=== PATIENT | male | born 1985 | race Asian ===

== ENCOUNTER 2020-03-12 02:11 | Emergency (ER) | payer SELFPAY ==
[~2020-03-12] VITALS: Ht 170.2 cm; Wt 68.0 kg
--- NOTE | 2020-03-12 02:10 | NUR ---
ED Nurse Note: pt presents to ED via EMS arrival c/o SOB and pain at 0130 this AM. when asked if hes in pain pt says yes but only shakes his R arm erratically, not being able to specify where/what is in pain. pt is writhing around in bed, very restless, tachypneic but satting at 100% on RA. pt denies any drug or alcohol use tonight. claims he does not understand [place]ib[place]ian but responds to questions asked in [place]ib[place]ian with [place]ian answers.
--- NOTE | 2020-03-12 02:20 | NUR ---
ED Nurse Note: Pt requested [facility] certified court interpreter. 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 he got off work at 2200 and went home to sleep, woke up around 0100 with sudden onset of difficulty breathing. pt denies any cough or fever, denies any sick contacts. pt requesting to be put on O2, Satting at 99% on RA.
[2020-03-12] MEDS ORDERED: Ketorolac 30mg Inj IV ONE (02:30)
[2020-03-12] MEDS ORDERED: LORazepam Inj 2mg/ml 1ml IV ONE (02:30)
[2020-03-12 02:36] LABS: EOSINOPHILS % (AUTO) 4.6 % (0.0-3.0); HEMATOCRIT 45.4 % (42.0-52.0); HEMOGLOBIN 14.7 G/DL (14.2-18.0); LYMPHOCYTES % (AUTO) 37.6 % (20.0-45.0); MEAN CORPUSCULAR VOLUME 92 FL (80-99); MONOCYTES % (AUTO) 5.2 % (1.0-10.0); NEUTROPHILS % (AUTO) 50.6 % (45.0-75.0); PLATELET COUNT 245 K/UL (150-450); RED BLOOD COUNT 4.96 M/UL (4.70-6.10); RED CELL DISTRIBUTION WIDTH 12.6 % (11.6-14.8); WHITE BLOOD COUNT 8.9 K/UL (4.8-10.8)
[2020-03-12 02:46] LABS: ANION GAP 15 mmol/L (5-15); BLOOD UREA NITROGEN 12 mg/dL (7-18); CARBON DIOXIDE 22 MMOL/L (21-32); CHLORIDE 101 MMOL/L (98-107); CREATININE 1.6 MG/DL (0.55-1.30); POTASSIUM 3.6 MMOL/L (3.5-5.1); SODIUM 137 MMOL/L (136-145)
[2020-03-12 02:53] VITALS: BP_SYST 131; BP_SYST 148; BP_DIAS 100; BP_DIAS 81
[2020-03-12 02:56] LABS: ALANINE AMINOTRANSFERASE 40 U/L (12-78); ALBUMIN 4.1 G/DL (3.4-5.0); ALBUMIN/GLOBULIN RATIO 1.2 (1.0-2.7); ALKALINE PHOSPHATASE 107 U/L (46-116); ASPARTATE AMINO TRANSFERASE 27 U/L (15-37); CREATINE KINASE 199 U/L (26-308)
--- NOTE | 2020-03-12 03:12 | Emergency Room Report ---
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 He finished work around 10 he reports that he had gone home After awaking several hours later and walking to eat something patient reports that the symptoms initiated Denies any headache denies any fevers Denies any cough denies any neck pain or photophobia denies any recent travel denies any chest pain Allergies: Coded Allergies: UNABLE TO ASSESS (Unverified , 03/12/20) COVID-19 Screening Contact w/high risk pt: No Recent Travel to affected area: No Experienced COVID-19 symptoms?: No COVID-19 Testing performed 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 Patient History Past Medical History: see triage record Reviewed Nursing Documentation: PMH: Agreed; PSxH: Agreed Nursing Documentation-PMH Past Medical History: No Stated History Review of Systems All Other Systems: negative except mentioned in HPI Physical Exam Vital Signs Date Time Temp Pulse Resp B/P (MAP) Pulse Ox O2 Delivery O2 Flow Rate FiO2 03/12/20 02:04 98.2 120 18 148/100 (116) 95 Room Air Sp02 EP Interpretation: reviewed, normal General Appearance: mild distress - Appears uncomfortable agitated Head: normocephalic, atraumatic Eyes: bilateral eye PERRL, bilateral eye EOMI ENT: hearing grossly normal, EOM grossly intact Neck: supple Respiratory: lungs clear, no respiratory distress, no retraction Cardiovascular #1: regular rate, rhythm Gastrointestinal: non tender, soft Genitourinary: no CVA tenderness Musculoskeletal: normal inspection Neurologic: alert, clinic administrator III-XII nml as tested, oriented x3 Psychiatric: anxious Skin: no rash Lymphatic: normal inspection Medical Decision Making Diagnostic Impression: Primary Impression: Pneumonia ER Course Patient is a fairly complex patient with multiple differential to consideration including but not limited to cardiac cardiopulmonary and vascular emergencies Other differential such as covid-19, infectious process entertained Patient's initial x-ray imaging does not show any acute process baseline blood work show mildly elevated creatinine level Glucose is also borderline Patient further hydrated he does seem to be much more comfortable after benzodiazepine Patient's EKG shows some nonspecific findings And given the initial complaints CT imaging of the chest is obtained The CT does report small alveolar marking with possible pneumonia no obvious pulmonary embolism Patient continues to saturate well on room air he is provided with oral Levaquin here And requires close outpatient follow-up The rapid covid-19 test was negative however there can be false negatives patient requires appropriate follow-up Labs Test 03/12/20 02:19 White Blood Count 8.9 K/UL (4.8-10.8) Red Blood Count 4.96 M/UL (4.70-6.10) Hemoglobin 14.7 G/DL (14.2-18.0) Hematocrit 45.4 % (42.0-52.0) Mean Corpuscular Volume 92 FL (80-99) Mean Corpuscular Hemoglobin 29.6 PG (27.0-31.0) Mean Corpuscular Hemoglobin Concent 32.3 G/DL (32.0-36.0) Red Cell Distribution Width 12.6 % (11.6-14.8) Platelet Count 245 K/UL (150-450) Mean Platelet Volume 6.8 FL (6.5-10.1) Neutrophils (%) (Auto) 50.6 % (45.0-75.0) Lymphocytes (%) (Auto) 37.6 % (20.0-45.0) Monocytes (%) (Auto) 5.2 % (1.0-10.0) Eosinophils (%) (Auto) 4.6 % (0.0-3.0) Basophils (%) (Auto) 2.0 % (0.0-2.0) Sodium Level 137 MMOL/L (136-145) Potassium Level 3.6 MMOL/L (3.5-5.1) Chloride Level 101 MMOL/L (98-107) Carbon Dioxide Level 22 MMOL/L (21-32) Anion Gap 15 mmol/L (5-15) Blood Urea Nitrogen 12 mg/dL (7-18) Creatinine 1.6 MG/DL (0.55-1.30) Estimat Glomerular Filtration Rate 50.3 mL/min (>60) Glucose Level 193 MG/DL (74-106) Calcium Level 9.0 MG/DL (8.5-10.1) Total Bilirubin 1.0 MG/DL (0.2-1.0) Aspartate Amino Transf (AST/SGOT) 27 U/L (15-37) Alanine Aminotransferase (ALT/SGPT) 40 U/L (12-78) Alkaline Phosphatase 107 U/L (46-116) Total Creatine Kinase 199 U/L (26-308) Troponin I 0.000 ng/mL (0.000-0.056) Total Protein 7.6 G/DL (6.4-8.2) Albumin 4.1 G/DL (3.4-5.0) Globulin 3.5 g/dL Albumin/Globulin Ratio 1.2 (1.0-2.7) Salicylates Level 0.4 ug/mL (2.8-20) Urine Opiates Screen Negative (NEGATIVE) Acetaminophen Level < 2 MCG/ML (10-30) Urine Barbiturates Screen Negative (NEGATIVE) Phencyclidine (PCP) Screen Negative (NEGATIVE) Urine Amphetamines Screen Negative (NEGATIVE) Urine Benzodiazepines Screen Negative (NEGATIVE) Urine Cocaine Screen Negative (NEGATIVE) Urine Marijuana (THC) Screen Negative (NEGATIVE) Serum Alcohol < 3 mg/dL EKG Diagnostic Results Rate: normal Rhythm: NSR ST Segments: other - Nonspecific ST and T wave changes there is also consideration of a mildly prolonged QRS Rhythm Strip Diag. Results EP Interpretation: yes Rate: 79 Rhythm: NSR, no PVC's, no ectopy Chest X-Ray Diagnostic Results Chest X-Ray Diagnostic Results : Chest X-Ray Ordered: Yes # of Views/Limited/Complete: 1 View Indication: Shortness of Breath EP Interpretation: Yes Interpretation: no consolidation, no effusion, no pneumothorax Impression: No acute disease Electronically Signed by: Erick Christianson, CT/MRI/US Diagnostic Results CT/MRI/US Diagnostic Results : Impression CT chestIMPRESSION: There is a faint alveolar infiltrate in the right upper lobe suspicious for pneumonia. No pulmonary embolus identified. Last Vital Signs Date Time Temp Pulse Resp B/P (MAP) Pulse Ox O2 Delivery O2 Flow Rate FiO2 03/12/20 02:53 103 18 Room Air 03/12/20 02:53 98.2 131/81 95 Status: improved Disposition: HOME, SELF-CARE Condition: Improved Referrals: NOT CHOSEN IPA/MD,REFERRING (PCP) Additional Instructions: Patient is provided with the discharge instructions notified to follow up with primary doctor in the next 2-3 days otherwise return to the er with any worsening symptoms. Please note that this report is being documented using DRAGON technology. This can lead to erroneous entry secondary to incorrect interpretation by the dictating instrument. Erick Christianson DO Mar 12, 2020 03:12
[2020-03-12] MEDS ORDERED: Omnipaque 350 100ml vial INJ PRN (03:15)
--- NOTE | 2020-03-12 04:33 | NUR ---
ED Nurse Note: pt is being taken to CT via gurney, no acute distress is noted at this time. pt has finished 2L NS per ERMD orders, he appears to be more calm now and cooperative. VSS on court recording monitor
--- NOTE | 2020-03-12 04:57 | NUR ---
ED Nurse Note: pt returned from CT
--- NOTE | 2020-03-12 05:31 | Diagnostic Imaging Report ---
EXAM: CT Angiography Chest With Intravenous Contrast CLINICAL HISTORY: SOB TECHNIQUE: Axial computed tomographic angiography images of the chest with intravenous contrast. CTDI is 30 mGy and DLP is 144 mGy-cm. One or more of the following dose reduction techniques were used: automated exposure control, adjustment of the mA and/or kV according to patient size, use of iterative reconstruction technique. MIP reconstructed images were created and reviewed. COMPARISON: No relevant prior studies available. FINDINGS: Pulmonary arteries: Unremarkable. No pulmonary embolism. Aorta: No acute findings. No thoracic aortic aneurysm. Lungs: There is a faint alveolar infiltrate in the right upper lobe suspicious for pneumonia. No additional infiltrates are identified. No mass. Pleural space: Unremarkable. No significant effusion. No pneumothorax. Heart: Unremarkable. No cardiomegaly. No significant pericardial effusion. No evidence of RV dysfunction. Bones/joints: No acute fracture. No dislocation. Soft tissues: Unremarkable. Lymph nodes: Unremarkable. No enlarged lymph nodes. IMPRESSION: There is a faint alveolar infiltrate in the right upper lobe suspicious for pneumonia. No pulmonary embolus identified.
[2020-03-12] MEDS ORDERED: Levofloxacin 750mg tab ORAL ONE (05:45)
[2020-03-12] MEDS ORDERED: LEVAQUIN750 MG ORAL (05:47)
--- NOTE | 2020-03-12 05:52 | NUR ---
ER DISCHARGE NOTE: Patient is cleared to be discharged per ERMD, pt is aox4, on room air, with stable vital signs. pt was given dc and prescription instructions, pt was able to verbalize understanding, pt id band and iv site removed without complications. pt is able to ambulate with steady gait. pt took all belongings.
[2020-03-12 05:53] VITALS: BP 131/81
--- NOTE | 2020-03-12 13:02 | Diagnostic Imaging Report ---
Indication: Shortness of breath Technique: XRAY Chest 1v Comparison: None Findings: Subtle patchy opacities are suggested in the right upper lobe. Possibility of a subtle evolving pneumonia not excluded. No pleural effusion or pneumothorax. Heart size and mediastinal contours within normal limits. No acute osseous abnormality. IMPRESSION: Possible subtle patchy opacities in the right upper lung. Developing pneumonia not excluded. Clinical correlation and follow-up recommended.
== END 2020-03-12 05:55 | disposition home or self-care (01) ==
LOC: EDBD 02:11 → EMR 03:00
DX: J18.9 Pneumonia, unspecified organism (principal)
CPT/HCPCS: 36415; 71045; 71275; 80053; 80307; 82550; 84484; 85025; 93005; 96361; 96374; 96375; 99284; G0480; J1885; J7030; Q9967; U0002

== ENCOUNTER 2020-03-15 00:13 | Emergency (ER) | payer SELFPAY ==
[~2020-03-15] VITALS: Ht 165.1 cm; Wt 74.8 kg
[~2020-03-15 00:13] MED LIST: LEVAQUIN750 MG ORAL
[2020-03-15 00:34] VITALS: BP 133/61
--- NOTE | 2020-03-15 00:34 | NUR ---
ED Nurse Note: pt ambulated into ed from home stating that he believes he has COVID-19. Pt denies any flu like symptoms, fever, n/v/d, SOB. Pt stated that he was recently tested at [facility] for COVID 19 and the results were negative. Pt states that he was given discharge paperwork which diagnoses the pt with pnemonia and was given RX. Pt was educated on pneumonia disease process vs COVID-19 and similarities. Pt appears to be uninformed regarding pneumonia diagnosis. Pt VSS, no evidence of fever, no body aches/chills. Awaiting ERMD at bedside.
--- NOTE | 2020-03-15 00:45 | NUR ---
ED Nurse Note: ERMD at bedside
--- NOTE | 2020-03-15 00:48 | NUR ---
ED Nurse Note: COVID swab sent to lab
--- NOTE | 2020-03-15 00:55 | NUR ---
ED Nurse Note: xray at bedside
[2020-03-15] MEDS ORDERED: ZINC GLUCONATE100 MG ORAL (01:02)
[2020-03-15] MEDS ORDERED: VITAMIN C500 M1 ORAL (01:02)
--- NOTE | 2020-03-15 01:02 | Emergency Room Report ---
History of Present Illness General Chief Complaint: General Complaint Source: Patient Present Illness HPI This a 34-year-old male with no past medical history. He presents with chief plaint of follow-up on pneumonia. He was here few days ago. He had fever and cough. He was short of breath. Rapid cover testing was negative. Chest x-ray was unremarkable. A CT scan however showed possible early infiltrate. He was placed on Levaquin. He said he felt little bit better. Fever improved. Still feels short of breath. He was sent in to be reevaluated for to see if he can go to work. Patient denies any nausea vomiting. Denies any chest pain. Cough is nonproductive in nature. Allergies: Coded Allergies: No Known Allergies (Unverified , 03/15/20) COVID-19 Screening Contact w/high risk pt: No Recent Travel to affected area: No Experienced COVID-19 symptoms?: No COVID-19 Testing performed HAND MOLDER MEAT: Yes - here , rapid, neg COVID-19 Screening: Negative COVID-19 COVID-19 Testing Source: nasl Patient History Past Medical History: see triage record, old chart reviewed Past Surgical History: none Pertinent Family History: none Social History: Denies: smoking Immunizations: other Reviewed Nursing Documentation: PMH: Agreed; PSxH: Agreed Nursing Documentation-PMH Past Medical History: No Stated History Review of Systems Eye: Denies: eye pain, blurred vision ENT: Denies: ear pain, nose congestion, throat swelling Respiratory: Reports: cough, shortness of breath Cardiovascular: Denies: chest pain, palpitations Gastrointestinal: Denies: abdominal pain, diarrhea, nausea, vomiting Musculoskeletal: Denies: back pain, joint pain Skin: Denies: rash Neurological: Denies: headache, numbness Endocrine: Denies: increased thirst, increased urine Hematologic/Lymphatic: Denies: easy bruising All Other Systems: negative except mentioned in HPI Physical Exam Vital Signs Date Time Temp Pulse Resp B/P (MAP) Pulse Ox O2 Delivery O2 Flow Rate FiO2 03/15/20 00:24 98.6 83 18 133/61 (85) 97 Room Air Vitals normal Sp02 EP Interpretation: reviewed, normal General Appearance: well appearing, no apparent distress, alert Head: normocephalic, atraumatic Eyes: bilateral eye PERRL, bilateral eye EOMI ENT: hearing grossly normal, normal pharynx Neck: full range of motion, supple, no meningismus Respiratory: chest non-tender, lungs clear, normal breath sounds Cardiovascular #1: regular rate, rhythm, no murmur Gastrointestinal: normal bowel sounds, non tender, no mass, no organomegaly, no bruit, non-distended Musculoskeletal: back normal, normal range of motion, gait/station normal Psychiatric: mood/affect normal Medical Decision Making Diagnostic Impression: Primary Impression: URI (upper respiratory infection) Qualified Codes: J06.9 - Acute upper respiratory infection, unspecified Additional Impression: CAP (community acquired pneumonia) Qualified Codes: J18.9 - Pneumonia, unspecified organism ER Course This patient presents with shortness of breath and cough. His initial rapid COVID was negative. I sent another one. Chest x-ray unremarkable. Because of the pandemic, suspect that he may have COVID. We will continue with his antibiotics since he is doing better. He looks well. No evidence of any sepsis , ACS, PE to name a few. No respiratory distress. Will discharge home. Chest X-Ray Diagnostic Results Chest X-Ray Diagnostic Results : Chest X-Ray Ordered: Yes # of Views/Limited/Complete: 1 View Indication: Shortness of Breath EP Interpretation: Yes Interpretation: no consolidation, no effusion, no pneumothorax, no acute cardiopulmonary disease Impression: No acute disease Electronically Signed by: Venu Deleon MD Last Vital Signs Date Time Temp Pulse Resp B/P (MAP) Pulse Ox O2 Delivery O2 Flow Rate FiO2 03/15/20 00:34 83 18 Room Air 03/15/20 00:34 98.6 133/61 97 Status: improved Disposition: HOME, SELF-CARE Condition: Stable Scripts Ascorbic Acid* (VITAMIN C*) 500 Mg Tablet 500 MG ORAL TWICE A DAY, #30 TAB Prov: Venu Deleon MD 03/15/20 Zinc Gluconate (ZINC GLUCONATE) 100 Mg Tablet 100 MG ORAL DAILY, #30 TAB Prov: Venu Deleon MD 03/15/20 Additional Instructions: Assume that you have COVID. Another test was sent. We will call you with the results. You can go back to work if you do not have fever for 3 days. Follow- up with your doctor in a week. Practice isolation. Return if worse. Venu Deleon MD Mar 15, 2020 01:02
[2020-03-15 01:07] VITALS: BP 133/61
--- NOTE | 2020-03-15 01:07 | NUR ---
ER DISCHARGE NOTE: Patient is cleared to be discharged home per ERMD, pt is aox4, 99% on room air, with stable vital signs. pt was given dc and prescription instructions, pt was able to verbalize understanding, pt id band removed. pt is able to ambulate with steady gait. pt took all belongings.
--- NOTE | 2020-03-15 01:30 | Diagnostic Imaging Report ---
INDICATION: No evidence of breath COMPARISON: CT chest 03/12/2020 FINDINGS: Single frontal view demonstrates a normal cardiomediastinal silhouette. The lungs are clear. No pleural effusions. The visualized osseous structures are within normal limits. IMPRESSION: No acute cardiopulmonary disease. Specifically no right upper lung opacity is seen radiographically.
== END 2020-03-15 01:07 | disposition home or self-care (01) ==
LOC: EMR 00:53
DX: J06.9 Acute upper respiratory infection, unspecified (principal); J18.9 Pneumonia, unspecified organism
CPT/HCPCS: 71045; 99283

== ENCOUNTER 2020-04-26 23:02 | Emergency (ER) | payer SELFPAY ==
[~2020-04-26] VITALS: Ht 172.7 cm; Wt 68.0 kg
[~2020-04-26 23:02] MED LIST changes: +VITAMIN C500 M1 ORAL; +ZINC GLUCONATE100 MG ORAL
[2020-04-26 23:20] VITALS: BP 134/93
[2020-04-27 00:19] LABS: ANION GAP 6 mmol/L (5-15); BLOOD UREA NITROGEN 12 mg/dL (7-18); CALCIUM 9.8 MG/DL (8.5-10.1); CARBON DIOXIDE 30 MMOL/L (21-32); CHLORIDE 102 MMOL/L (98-107); CREATININE 1.2 MG/DL (0.55-1.30); POTASSIUM 3.8 MMOL/L (3.5-5.1); SODIUM 138 MMOL/L (136-145)
[2020-04-27 00:21] LABS: BASOPHILS % (AUTO) 2.3 % (0.0-2.0); EOSINOPHILS % (AUTO) 10.5 % (0.0-3.0); HEMATOCRIT 44.7 % (42.0-52.0); HEMOGLOBIN 15.2 G/DL (14.2-18.0); LYMPHOCYTES % (AUTO) 27.3 % (20.0-45.0); MEAN CORPUSCULAR VOLUME 88 FL (80-99); MONOCYTES % (AUTO) 9.8 % (1.0-10.0); NEUTROPHILS % (AUTO) 50.1 % (45.0-75.0); PLATELET COUNT 222 K/UL (150-450); RED BLOOD COUNT 5.11 M/UL (4.70-6.10); RED CELL DISTRIBUTION WIDTH 11.2 % (11.6-14.8)
[2020-04-27 00:30] LABS: ALANINE AMINOTRANSFERASE 31 U/L (12-78); ALBUMIN 4.6 G/DL (3.4-5.0); ALBUMIN/GLOBULIN RATIO 1.5 (1.0-2.7); ALKALINE PHOSPHATASE 106 U/L (46-116); ASPARTATE AMINO TRANSFERASE 18 U/L (15-37)
[2020-04-27] MEDS ORDERED: CLARITIN10 MG ORAL (00:35)
[2020-04-27 00:44] VITALS: BP 130/86
--- NOTE | 2020-04-28 07:21 | Emergency Room Report ---
History of Present Illness General Chief Complaint: Generalized Weakness Source: Patient Present Illness HPI Patient is a 34-year-old male presents requesting blood draw. Patient stated he wanted his hemoglobin checked. Reports no new symptoms currently. Reportedly had been feeling somewhat weak. He denies prior history of anemia. He denies any fever or vomiting. Denies any pain. He had been ambulatory without assistance. Patient denies any other current issues. 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 Patient History Past Medical History: see triage record Reviewed Nursing Documentation: PMH: Agreed; PSxH: Agreed Nursing Documentation-PMH Past Medical History: No Stated History Review of Systems All Other Systems: negative except mentioned in HPI Physical Exam Vital Signs Date Time Temp Pulse Resp B/P (MAP) Pulse Ox O2 Delivery O2 Flow Rate FiO2 04/26/20 23:09 98.8 74 12 134/93 (107) 100 Room Air Sp02 EP Interpretation: reviewed, normal General Appearance: normal inspection, well appearing, no apparent distress, alert, GCS 15 Head: atraumatic ENT: normal ENT inspection, hearing grossly normal, normal voice Neck: normal inspection, full range of motion, supple, no bony tend Respiratory: normal inspection, lungs clear, normal breath sounds, no respiratory distress, no retraction, no wheezing Cardiovascular #1: regular rate, rhythm, no edema Gastrointestinal: normal inspection, normal bowel sounds, non tender, soft, no guarding, no hernia Genitourinary: no CVA tenderness Musculoskeletal: normal inspection, back normal, normal range of motion Neurologic: alert, motor strength/tone normal, 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 Differential diagnosis include was not limited to electrolyte abnormality, dehydration, anemia, among others. Patient has an overall benign exam and does not show any evidence of focal weakness. Laboratory testing was ordered per patient request. Laboratory testing was unremarkable other than eosinophilia. Patient appears to be stable for outpatient management. He was given prescription for Claritin. He was advised to have further work-up of elevated eosinophil count. He was advised to return if worse. This medical record is generated with [email or web address] cnc machinist 2nd shift software. There may be some cnc machinist 2nd shift discrepancies related to use of this software Labs Test 04/26/20 23:56 White Blood Count 6.0 K/UL (4.8-10.8) Red Blood Count 5.11 M/UL (4.70-6.10) Hemoglobin 15.2 G/DL (14.2-18.0) Hematocrit 44.7 % (42.0-52.0) Mean Corpuscular Volume 88 FL (80-99) Mean Corpuscular Hemoglobin 29.7 PG (27.0-31.0) Mean Corpuscular Hemoglobin Concent 33.9 G/DL (32.0-36.0) Red Cell Distribution Width 11.2 % (11.6-14.8) Platelet Count 222 K/UL (150-450) Mean Platelet Volume 7.7 FL (6.5-10.1) Neutrophils (%) (Auto) 50.1 % (45.0-75.0) Lymphocytes (%) (Auto) 27.3 % (20.0-45.0) Monocytes (%) (Auto) 9.8 % (1.0-10.0) Eosinophils (%) (Auto) 10.5 % (0.0-3.0) Basophils (%) (Auto) 2.3 % (0.0-2.0) Sodium Level 138 MMOL/L (136-145) Potassium Level 3.8 MMOL/L (3.5-5.1) Chloride Level 102 MMOL/L (98-107) Carbon Dioxide Level 30 MMOL/L (21-32) Anion Gap 6 mmol/L (5-15) Blood Urea Nitrogen 12 mg/dL (7-18) Creatinine 1.2 MG/DL (0.55-1.30) Estimat Glomerular Filtration Rate > 60 mL/min (>60) Glucose Level 102 MG/DL (74-106) Calcium Level 9.8 MG/DL (8.5-10.1) Magnesium Level 2.0 MG/DL (1.8-2.4) Total Bilirubin 1.0 MG/DL (0.2-1.0) Aspartate Amino Transf (AST/SGOT) 18 U/L (15-37) Alanine Aminotransferase (ALT/SGPT) 31 U/L (12-78) Alkaline Phosphatase 106 U/L (46-116) Total Protein 7.7 G/DL (6.4-8.2) Albumin 4.6 G/DL (3.4-5.0) Globulin 3.1 g/dL Albumin/Globulin Ratio 1.5 (1.0-2.7) Last Vital Signs Date Time Temp Pulse Resp B/P (MAP) Pulse Ox O2 Delivery O2 Flow Rate FiO2 04/27/20 00:44 98.8 79 16 130/86 100 Room Air Status: improved Disposition: HOME, SELF-CARE Condition: Stable Scripts Loratadine (CLARITIN) 10 Mg Tablet 10 MG ORAL DAILY, #30 TAB Prov: Marshall Arroyo MD 04/27/20 Referrals: NOT CHOSEN IPA/,REFERRING (PCP) Patient Instructions: Weakness Additional Instructions: Follow up with your doctor for further workup of weakness. Return if worse. Marshall Arroyo MD Apr 28, 2020 07:21
== END 2020-04-27 00:44 | disposition home or self-care (01) ==
LOC: EMR 23:31
DX: R53.1 Weakness (principal); D70.9 Neutropenia, unspecified
CPT/HCPCS: 36415; 80053; 83735; 85025; 99282